=== PATIENT | female | born 1960 | race Caucasian/White ===

== ENCOUNTER → 2023-10-01 | Day surgery (SDC) | payer BC ==
[~2023-10-01] MED LIST: ATIVAN0.5 MG PO; CIPRO500 MG PO; CITALOPRAM HBR20 MG PO; DICYCLOMINE HCL20 MG PO; LIDOCAINE HCL 2% LOCAL INJ 5 ML SDV VIAL INJ ONE; MIDAZOLAM HCL 2 MG/2 ML VIAL ONE; PANTOPRAZOLE SO40 MG PO; PROPOFOL IV EMULSION 10 MG/ML 20 ML VIAL ONE
[2023-10-01] MEDS: LACTATED RINGER'S 1,000 ML ONE (08:54)
[2023-10-01 11:50] VITALS: BP 114/74; PULSE 61; RESP 16; TEMP 97.8; O2SAT 97
== END | disposition home or self-care (01) ==
LOC: OR 08:33
PROVIDERS: ATTEND Internal Medicine Gastroenterology
DX: Z12.11 Encounter for screening for malignant neoplasm of colon (principal); D12.0 Benign neoplasm of cecum; D12.3 Benign neoplasm of transverse colon; D12.4 Benign neoplasm of descending colon; D12.5 Benign neoplasm of sigmoid colon; K31.7 Polyp of stomach and duodenum; K29.70 Gastritis, unspecified, without bleeding; K29.80 Duodenitis without bleeding; K20.90 Esophagitis, unspecified without bleeding; K31.89 Other diseases of stomach and duodenum; K21.9 Gastro-esophageal reflux disease without esophagitis; K76.0 Fatty (change of) liver, not elsewhere classified; I34.1 Nonrheumatic mitral (valve) prolapse; N39.0 Urinary tract infection, site not specified; N20.0 Calculus of kidney; F41.9 Anxiety disorder, unspecified; F17.290 Nicotine dependence, other tobacco product, uncomplicated; Z88.1 Allergy status to other antibiotic agents; Z01.810 Encounter for preprocedural cardiovascular examination; Z79.899 Other long term (current) drug therapy
CPT/HCPCS: 43239; 43251; 45385; 93005; C9113; J2001; J2250; J2704; J7121; 45378